=== PATIENT | female | born 1990 ===

== ENCOUNTER 2018-02-17 07:23 | Outpatient (CLI) | payer BC ==
--- NOTE | 2018-02-17 10:16 | MRI ---
MRI OF THE ABDOMEN WITH AND WITHOUT IV CONTRAST: INDICATION: History of focal nodular hyperplasia of the liver. COMPARISON: None. TECHNIQUE: Multiplanar, multisequence MR images were obtained of the abdomen utilizing liver mass protocol. Nani evangelina cc of [place] was utilized for the examination. FINDINGS: No definite focal abnormal signal abnormality is seen within the liver. No definite area of abnormal enhancement is evident. A small blush of arterial enhancement is seen within the region of segment 5 on image 1021 of series 10 and then fades to background on delayed image series. This could be rel ated to a small area of artifact, perfusion anomaly or this may reflect the patient's reported focal nodular hyperplasia. No additional signal abnormality is grossly evident. No enlarged lymph nodes a re evident. The kidneys, pancreas, spleen, and adrenal glands are normal appearing. No free fluid i s evident. No bone marrow signal is evident. IMPRESSION: 1. Small focus of arterial enhancement measuring approximately 7 mm within segment 5 right hepatic l obe may reflect the patient's reported focal nodular hyperplasia. This is difficult to fully charact erize due to its size. No additional signal abnormality is grossly evident. 2. No additional abnormalities. POS: [facility]
[2018-02-17] MEDS ORDERED: Gadobenate Dimeglumine 529 MG/1 ML (20ML VIAL) ONE (16:47)
== END 2018-02-17 07:24 | disposition home or self-care (01) ==
LOC: BICMRI 07:23
PROVIDERS: ATTEND Internal Medicine Gastroenterology
DX: K76.89 Other specified diseases of liver (principal); R93.2 Abnormal findings on diagnostic imaging of liver and biliary tract
CPT/HCPCS: 74183; A9579